=== PATIENT | male | born 1945 | race Caucasian/White ===

== ENCOUNTER 2018-03-10 21:17 | Emergency (ER) | payer MEDICARE, OTHER, SELFPAY ==
[2018-03-10 21:25] VITALS: BP 125/83; PULSE 73; RESP 18; TEMP 36.2; O2SAT 94
--- NOTE | 2018-03-10 21:37 | DI.RAD.S_ITS ---
PROCEDURE: XR PELVIS 1-2V INDICATIONS: trauma TECHNIQUE: 1 view(s) of the pelvis acquired. COMPARISON: None. FINDINGS: Bones: No fractures or dislocations. No suspicious bony lesions. Soft tissues: Visualized bowel gas pattern is normal. No suspicious soft tissue calcifications. IMPRESSION: No fractures. If clinical symptoms persist or clinical suspicion for pathology is high, a repeat examination in 7-10 days, or advanced imaging such as CT or MRI is suggested for further evaluation. Dictated by: Hari Alvarez M.D. on 03/11/2018 at 8:33 Approved by: Hari Alvarez M.D. on 03/11/2018 at 8:33
--- NOTE | 2018-03-10 21:37 | DI.CT.S_ITS ---
PROCEDURE: CT CERVICAL SPINE WO CON INDICATIONS: fall with head injury, 15 stairs TECHNIQUE: Noncontrast 3 mm thick sections acquired from the skull base to the T4 level. Sagittal and coronal reformats were then constructed. For radiation dose reduction, the following was used: automated exposure control, adjustment of mA and/or kV according to patient size. COMPARISON: [facility], CR, XR CHEST 1V, 03/10/2018, 22:33. [facility], CT, CT HEAD/BRAIN WO CON, 03/10/2018, 21:54. FINDINGS: Image quality: Excellent. Bones: No fractures or dislocations. There is moderate degenerative disc disease at C3-C4, C5-C6, C6-C7 and C7-T1. There is uncovertebral hypertrophy and bilateral facet also occasi scattered in cervical spine. Visualized superior ribs are intact. There is left occipital craniotomy. Soft tissues: Prevertebral soft tissues are normal in thickness. No paravertebral hematomas. No apical pneumothoraces. IMPRESSION: 1. No fractures. 2. Degenerative changes as described. 3. Left occipital craniotomy. Dictated by: Hari Alvarez M.D. on 03/11/2018 at 7:24 Approved by: Hari Alvarez M.D. on 03/11/2018 at 7:28
--- NOTE | 2018-03-10 21:38 | DI.CT.S_ITS ---
PROCEDURE: CT HEAD/BRAIN WO CON INDICATIONS: fall, head injury TECHNIQUE: Noncontrast 4.5 mm thick angled axial sections acquired from the foramen magnum to the vertex, with coronal and sagittal reformats. For radiation dose reduction, the following was used: automated exposure control, adjustment of mA and/or kV according to patient size. COMPARISON: None. FINDINGS: Image quality: Excellent. CSF spaces: Basal cisterns are patent. Possible trace acute subdural hematoma along the right falx. The ventricles are symmetric in size and shape. Brain: There is postsurgical changes in the inferior left cerebellum. No intracranial mass, mass effect or midline shift. There is mild cerebral volume loss for age, with resultant ventricular and sulcal prominence. There are mild periventricular and deep white matter chronic small vessel ischemic changes. There is intracranial internal carotid artery atherosclerosis. Skull and face: Calvarium and visualized facial bones appear intact, without suspicious lesions. There is a surgical defect in the left occipital region consistent with prior craniotomy. Sinuses: Visualized sinuses and mastoids are clear. IMPRESSION: 1. Possible trace acute epidural hematoma along the right falx. 2. Postsurgical changes in the left cerebellum with left occipital craniotomy. 3. Cerebral volume loss and chronic microvascular ischemic changes. Dictated by: Hari Alvarez M.D. on 03/11/2018 at 7:42 Approved by: Hari Alvarez M.D. on 03/11/2018 at 7:46
--- NOTE | 2018-03-10 21:38 | DI.RAD.S_ITS ---
PROCEDURE: XR CHEST 1V INDICATIONS: fall, trauma TECHNIQUE: One view of the chest was acquired. COMPARISON: None. FINDINGS: Surgical changes and devices: None. Lungs and pleura: Left basilar opacity may be infiltrate or atelectasis. No pleural effusions or pneumothorax. Mediastinum: Mediastinal contours appear normal. Heart size is normal. Bones and chest wall: No suspicious bony lesions. Overlying soft tissues appear unremarkable. Calcific density over the left coracoid process is noted, which may be tendon calcification or intra-articular body. IMPRESSION: Left basilar infiltrate or atelectasis. Dictated by: Hari Alvarez M.D. on 03/11/2018 at 8:29 Approved by: Hari Alvarez M.D. on 03/11/2018 at 8:31
--- NOTE | 2018-03-10 21:41 | ED_ITS ---
HPI - Fall General Chief Complaint: Fall Stated Complaint: HEAD AND LT KNEE INJURY Time Seen by Provider: 03/10/18 21:37 Source: patient Mode of arrival: ambulatory Limitations: no limitations History of Present Illness HPI Narrative: 72-year-old male with history of AVM repair presents to the emergency department with a mechanical fall down 15 stairs at the [place] landing just prior to arrival. He denies loss of consciousness nor nausea or vomiting. He states he only has facial pain and denies neck pain though has significant mechanism. He denies numbness, tingling or weakness. He states he has balance problems since his AVM repair in February 2017. He has a history of multiple pulmonary emboli after that surgery and had been on Coumadin until about 2 months ago but no longer takes it. Patient activated as a modified trauma based on fall down 12 stairs or greater on a hard surface. at bedside MD complaint: fall Onset (ago): hour(s) Fall from: standing Fall witnessed: yes, by family Place fall occurred: other Loss of consciousness: none Symptoms prior to fall: none Context: tripped/slipped Location of injury: head Related Data Home Medications Medication Instructions Recorded Confirmed diazepam 5 mg PO PRN 03/10/18 tamsulosin 0.4 mg PO DAILY 03/10/18 03/10/18 venlafaxine 150 mg PO DAILY 03/10/18 03/10/18 Allergies Allergy/AdvReac Type Severity Reaction Status Date / Time No Known Drug Allergies Allergy Verified 03/10/18 21:29 Review of Systems Review of Systems All systems reviewed & are unremarkable except as noted in HPI and below Constitutional Denies chills, Denies fever(s), Reports headache(s), Denies lethargy and Denies weakness Eyes Denies change in vision, Denies eye discharge, Denies irritation and Denies loss of vision ENT Ears, Nose, Mouth, and Throat: Denies change in voice, Reports headache(s), Denies neck pain and Denies sore throat Cardiovascular Denies chest pain, Denies irregular heart rhythm, Denies lightheadedness, Denies palpitations, Denies dyspnea, Denies dyspnea on exertion and Denies orthopnea Respiratory Denies cough, Denies dyspnea, Denies dyspnea on exertion and Denies wheezing Gastrointestinal Gastrointestinal: Denies abdominal pain, Denies change in bowel habits, Denies diarrhea, Denies nausea and Denies vomiting Genitourinary Denies hematuria, Denies flank pain, Denies urinary incontinence and Denies urinary urgency Musculoskeletal Denies neck pain Integumentary/Breasts Denies pruritus, Denies erythema, Denies rash and Reports wounds Neurologic Denies confusion, Reports headache(s), Denies loss of vision and Denies weakness Psychiatric Denies anxiety, Denies confusion, Denies depression, Denies homicidal ideation and Denies suicidal ideation Endocrine Denies palpitations Hematologic/Lymphatic Denies easy bruising Allergic/Immunologic Denies wheezing Exam Narrative Exam Narrative: Pleasant 72-year-old male alert and oriented, GCS 15 complaining of headache, head dressing in place Initial Vital Signs Initial Vital Signs: Vital Signs Temperature 97.1 F L 03/10/18 21:25 Pulse Rate 73 03/10/18 21:25 Respiratory Rate 18 03/10/18 21:25 Blood Pressure 125/83 H 03/10/18 21:25 Pulse Oximetry 94 03/10/18 21:25 Const General: cooperative and in distress Nutritional Appearance: average body habitus Orientation: alert, awake and oriented x3 HENMT Head: other (Patient has a stellate laceration in the center of his forehead with surrounding abrasion, no active bleeding) Eyes General: appearance normal, both eyes and all related structures Eyelids: eyelids normal Conjunctivae: conjunctivae normal Sclera: sclerae normal Pupils: PERRL EOM: EOM intact bilaterally Neck Neck: normal visual inspection, trachea midline, No lymphadenopathy, No midline deformity and No JVD Lymphatic: No lymphedema Chest Chest: normal inspection of the chest Resp Effort & Inspection: normal respiratory effort, able to speak in complete sentences, no respiratory distress and no use of accessory muscles Auscultation: clear to auscultation bilaterally, no rales, no rhonchi and no wheezes Cardio Rate: regular rate Rhythm: regular rhythm Heart Sounds: no click, no gallops, no murmurs and no rubs Pulses: normal peripheral pulses Back/Spine/Pelvis Back: No CVA tenderness Cervical Spine: cervical ROM normal and No pain with cervical ROM Thoracic/Lumbar Spine: thoracic and lumbar spine normal to inspection Skin Trauma: abrasion and laceration Neuro General: alert, oriented x3, gait normal and no focal motor deficits Speech: speech normal Sensory Exam: no sensory deficits noted Psych Appearance: well kempt Mental Status: mental status grossly normal Attitude: cooperative Thought Content: normal and suicidality Judgment: judgment good PFSH Medical History AVM (arteriovenous malformation) (Acute) Pulmonary embolism (Acute) Course Orders Ordered: ED Orders 03/10/18 21:37 CT cervical spine wo con Stat XR pelvis 1-2V Stat 03/10/18 21:38 CT head/brain wo con Stat XR chest 1V Stat 03/10/18 21:45 Basic Metabolic Panel Stat Complete Blood Count AUTO DIFF Stat Prothrombin Time INR Stat Reevaluation(s) Reevaluation #1: patient continues to be AOx3, GCS 15. Consultations Consultation #1: Immediate call to [facility] upon receipt of head CT. [facility] called for a whether check. Images pushed Dr. Lundberg is happy to [place] [facility] [place] and [place] Vital Signs - 8 hr 03/10/18 21:25 03/10/18 22:18 Temperature 97.1 F L Pulse Rate 73 62 Respiratory Rate 18 14 Blood Pressure 125/83 H Blood Pressure [Left Arm] 125/73 H Pulse Oximetry 94 94 MDM - Fall Medical Records Attestation: I reviewed the patient's medical records. Lab Data Attestation: I reviewed the patient's lab results. Result diagrams: 03/10/18 21:45 03/10/18 21:45 Lab Results 03/10/18 03/10/18 03/10/18 Range/Units 21:45 21:45 21:45 WBC 8.3 (4.5-11.0) X10^3/uL RBC 5.07 (4.5-5.9) X10^6/uL Hgb 14.8 (13.5-17.5) g/dL Hct 44.4 (41-53) % MCV 87.6 (80-100) fL MCH 29.2 (26-34) PG MCHC 33.3 (30-36) % RDW 14.0 (11.6-14.8) % Plt Count 237 (150-400) X10^3/uL Neut % (Auto) 70.5 (50-75) % Lymph % (Auto) 17.3 L (25-40) % [place] % (Auto) 9.7 (3-14) % Eos % (Auto) 2.0 (2-4) % Baso % (Auto) 0.5 (0-2) % Neut # (Auto) 5900 (2462-7830) /uL PT 11.7 (10.1-12.7) SECONDS INR 1.1 (0.9-1.3) Sodium 142 (137-145) mmol/L Potassium 3.7 (3.4-5.1) mmol/L Chloride 105 (98-107) mmol/L Carbon Dioxide 26 (22-32) mmol/L BUN 20 (9-20) mg/dL Creatinine 1.00 (0.66-1.25) mg/dL Estimated GFR > 60.0 (>60) mL/min BUN/Creatinine Ratio 20.0 (6-22) Glucose 134 H (80-110) mg/dL Calcium 9.1 (8.4-10.2) mg/dL Imaging Data CT scan - head: Radiologist's impression: Acute subdural hematoma layering along the falx no mass effect CSpine CT: Radiologist's impression: No fracture noted Chest x-ray: Radiologist's impression: No acute process Xray Pelvis: Radiologist's impression: No acute process Critical Care Time Critical Care Time: Yes Total Critical Care Time: 30 Attestation: The high probability of a clinically significant, sudden or life threatening deterioration of the [] system(s) required my full and direct attention, intervention and personal management. The aggregate critical care time was [30] minutes. This time is in addition to time spent performing reported procedures but includes the following: [x] Data Review and interpretation [x] Patient assessment and monitoring of vital signs [x] Documentation [x] Medication orders and management Discharge Plan Departure Patient Disposition: [facility] Clinical Impression: Acute subdural hematoma, Face lacerations Prescriptions: No Action venlafaxine 150 mg Capsule,Extended Release 24hr 150 mg PO DAILY RF: 0 tamsulosin 0.4 mg PO DAILY RF: 0 diazepam 5 mg Tablet 5 mg PO PRN (Reason: Agitation) RF: 0
[2018-03-10 22:07] LABS: Add Manual Diff / Slide Review NO; Basophils Percent Auto 0.5 % (0-2); Hematocrit 44.4 % (41-53); Hemoglobin 14.8 g/dL (13.5-17.5); Lymphocytes Percent Auto 17.3 % (25-40); Mean Corpuscular HGB Conc 33.3 % (30-36); Mean Corpuscular Hemoglobin 29.2 PG (26-34); Mean Corpuscular Volume 87.6 fL (80-100); Monocytes Percent Auto 9.7 % (3-14); Neutrophils Absolute Auto 5900 /uL (3000-5900); Neutrophils Percent Auto 70.5 % (50-75); Platelet Count 237 X10^3/uL (150-400); Red Blood Cell Count 5.07 X10^6/uL (4.5-5.9); White Blood Cell Count 8.3 X10^3/uL (4.5-11.0)
[2018-03-10 22:09] LABS: INR 1.1 (0.9-1.3); Prothrombin Time 11.7 SECONDS (10.1-12.7)
[2018-03-10 22:13] LABS: Blood Urea Nitrogen 20 mg/dL (9-20); Calcium 9.1 mg/dL (8.4-10.2); Carbon Dioxide 26 mmol/L (22-32); Chloride 105 mmol/L (98-107); Estimated Glomerular Filt Rate > 60.0 mL/min (>60); Glucose 134 mg/dL (80-110); HEMOLYSIS < 15 (0-50); Potassium 3.7 mmol/L (3.4-5.1); Sodium 142 mmol/L (137-145)
[2018-03-10 22:18] VITALS: BP 125/73; PULSE 62; RESP 14; O2SAT 94
--- NOTE | 2018-03-10 22:47 | PC.NURSE ---
He came with a dressing to his forehead,he has a small avulsion lac of forehead.
[2018-03-10 23:18] VITALS: BP 139/84; PULSE 65; RESP 16; TEMP 36.4; O2SAT 96
[2018-03-10 23:40] VITALS: BP 139/84; PULSE 68; RESP 18; O2SAT 97
== END 2018-03-10 23:42 | disposition short-term general hospital (02) ==
PROVIDERS: Emergency Provider Emergency Medicine; Family Provider Internal Medicine; PCP Internal Medicine
DX: S06.5X9A Traumatic subdural hemorrhage with loss of consciousness of unspecified duration, initial encounter (principal); S01.81XA Laceration without foreign body of other part of head, initial encounter; W10.8XXA Fall (on) (from) other stairs and steps, initial encounter
CPT/HCPCS: 70450; 71045; 72125; 72170; 80048; 85025; 85610; 99283; 99285; 99291